=== PATIENT | female | born 1990 | race Caucasian/White ===

== ENCOUNTER 2019-10-09 04:30 | Emergency (ER) | payer SELFPAY ==
[2019-10-09] MEDS ORDERED: Hydrocortisone TAB* 10 MG PO ONE (06:01)
[2019-10-09] MEDS ORDERED: HYDROcodone/ACETAMIN 5-325 MG* 1 TAB PO ONE (06:10)
[2019-10-09 07:12] VITALS: BP 109/62
[2019-10-09] MEDS ORDERED: Sulfamethox/Trimethoprim SS 400/80* TAB PO ONE (07:57)
--- NOTE | 2019-10-09 10:46 | ED ---
GI/ HPI - HPI Summary HPI Summary: This patient is a 28-year-old otherwise healthy female presenting to the ED with chief complaint of "vaginal swelling" times approximately 2 days. She states symptoms are worse the left side, however she feels the swelling all over. Denies history of STDs or recent infections. Denies chance of STDs. Sexually active, however states "it has been a while." Male partner. Denies fevers, sweats, chills. Patient states she is feeling otherwise well, denies any nausea, vomiting or other illness. Continues to eat and drink okay. She's never had this pain in the past. She denies any drainage from the area. She continues to urinate okay and denies any symptoms of UTI. - History of Current Complaint Chief Complaint: EDUrogenitalProblems Time Seen by Provider: 10/09/19 05:48 Stated Complaint: GROIN PAIN PER PT Hx Obtained From: Patient Hx Last Menstrual Period: last month Onset/Duration: Started Days Ago Timing: Constant Severity: Severe Current Severity: Severe Pain Intensity: 4 Location of Pain: Other - left vulvar Additional Location for Females: Vulva Pain Characteristics: Aching, Pressure Additional Signs & Symptoms: Positive: Genital Swelling Aggravating Factor(s): Voiding, Urination Alleviating Factor(s): Position - Allergy/Home Medications Allergies/Adverse Reactions: Allergies Allergy/AdvReac Type Severity Reaction Status Date / Time No Known Allergies Allergy Verified 10/09/19 04:34 PMH/Surg Hx/FS Hx/Imm Hx Previously Healthy: Yes - Immunization History Hx Pertussis Vaccination: No Immunizations Up to Date: Yes Infectious Disease History: No Infectious Disease History: Denies: Traveled Outside the [place] in Last 30 Days - Family History Known Family History: Positive: Unknown - Social History Occupation: Employed Full-time Lives: With Family Alcohol Use: None Hx Substance Use: No Substance Use Type: Reports: None Hx Tobacco Use: No Smoking Status (MU): Never Smoked Tobacco Review of Systems Negative: Fever, Chills, Fatigue, Skin Diaphoresis Negative: Palpitations, Chest Pain Negative: Shortness Of Breath, Cough Genitourinary: Negative Positive: no symptoms reported, see HPI, pain - L vulva Negative: Arthralgia, Myalgia Skin: Negative Neurological: Negative All Other Systems Reviewed And Are Negative: Yes Physical Exam Triage Information Reviewed: Yes Vital Signs On Initial Exam: Initial Vitals Temp Pulse Resp BP Pulse Ox 98.3 F 91 15 133/78 100 10/09/19 04:32 10/09/19 04:32 10/09/19 04:32 10/09/19 04:32 10/09/19 04:32 Vital Signs Reviewed: Yes Appearance: Positive: Well-Appearing, Well-Nourished Skin: Positive: Warm, Skin Color Reflects Adequate Perfusion Head/Face: Positive: Normal Head/Face Inspection Eyes: Positive: EOMI, Conjunctiva Clear Neck: Positive: Supple, No Lymphadenopathy Respiratory/Lung Sounds: Positive: Clear to Auscultation, Breath Sounds Present Cardiovascular: Positive: Pulses are Symmetrical in both Upper and Lower Extremities Bowel Sounds: Positive: Present Pelvic Exam: Positive: Other - large 2cm area of fluctuant material to the L labia/vulvar region, pressure, warmth, erythema Musculoskeletal: Positive: Strength/ROM Intact Neurological: Positive: Speech Normal Psychiatric: Positive: Affect/Mood Appropriate Procedures - Sedation Patient Received Moderate/Deep Sedation with Procedure: No - Incision and Drainage Left Anesthesia: Local, Lidocaine Instrument(s): Scalpel, Needle Packing: Other - none Diagnostics - Vital Signs Vital Signs Temp Pulse Resp BP Pulse Ox 10/09/19 08:54 98.3 F 97 14 109/62 100 10/09/19 06:56 109/62 10/09/19 06:26 106/70 10/09/19 05:56 96 105/66 100 10/09/19 05:26 77 103/74 100 10/09/19 05:00 77 100 10/09/19 04:57 85 126/77 100 10/09/19 04:56 90 100 10/09/19 04:32 98.3 F 91 15 133/78 100 - Laboratory Lab Statement: Any lab studies that have been ordered have been reviewed, and results considered in the medical decision making process. GIGU Course/Dx - Course Course Of Treatment: On physical examination, vulvar examination is performed with a visual inspection and palpation of bartholin gland measuring 2cm. the area is tender, warm, soft slightly fluctuant in the medial labia majora. No surrounding erythema to suggest cellulitis. Approximately 2cm and extending up into the upper labia. I&D performed under local anesthesia. Currently no available Word catheter in the ED. Lidocaine without epi used as local anesthetic. Small incision made with 11 blade and purulent drainage expressed. Cultures sent. Pt unable to tolerate full procedure, however 2+cc purulent drainage able to be expressed to aid in improvement. Did not pack this area, again as pt unable to tolerate further procedure. Warm packs given and encouraged for the next few days. She is given bactrim in the ED along with hydrocodone 10mg. She will be prescribed both and will follow up with [facility] for further evaluation. As wound is left for spontaneous drainage, without other method of keeping tract open, there is a chance of immediate recurrence and continuing condition if area closes. This was discussed with the patient and she will return for any complications. - Diagnoses Differential Diagnoses - Female: Bartholin Cyst, Other - bartholin cyst, vulvar abscess Provider Diagnoses: Bartholin's gland abscess Discharge ED - Sign-Out/Discharge Documenting (check all that apply): Patient Departure - Discharge Plan Condition: Stable Disposition: HOME Prescriptions: Hydrocodone/Acetamin 10/325(NF [[place] 10/325 (NF)] 1 tab PO Q6H #8 tab MDD 4 Sulfamethox/Trimethoprim DS* [Bactrim DS 800/160 TAB*] 1 tab PO BID #13 tab Patient Education Materials: Bartholin Cyst (ED), Incision and Drainage (ED) Referrals: Lida Culver MD [Medical Doctor] - No Primary Care Phys,NOPCP [Primary Care Provider] - Additional Instructions: Continue with warm compresses to the area as much as possible Bactrim twice daily x 7 days Hydrocodone 10mg four times daily for pain as needed Please call OBGYN tomorrow for follow up - call tomorrow morning Please tell them you had an I and D and you need a recheck of the area If the area continues to swell or does not reduce in size, or you develop fevers - please return to the ED - Billing Disposition and Condition Condition: STABLE Disposition: Home
== END 2019-10-09 08:53 | disposition home or self-care (01) ==
LOC: ED 04:30
DX: N75.1 Abscess of Bartholin's gland (principal)
CPT/HCPCS: 56420; 87070; 87077; 87186; 99283; A9270-GY